=== PATIENT | male | born 1970 | race Caucasian/White ===

== ENCOUNTER → 2019-09-18 13:04 | Outpatient (BNVA) | payer BC, SELFPAY | PROVIDERS: Family Provider Electrodiagnostic Medicine; PCP Family Medicine; Visit Provider Nurse Practitioner | DX: F31.81 Bipolar II disorder (principal) | CPT/HCPCS: 90832; 99213 ==

== ENCOUNTER → 2019-11-29 08:28 | Outpatient (BNVA) | payer BC, SELFPAY | PROVIDERS: Family Provider Electrodiagnostic Medicine; PCP Family Medicine; Visit Provider Nurse Practitioner | DX: F31.81 Bipolar II disorder (principal) | CPT/HCPCS: 99214 ==

== ENCOUNTER → 2019-12-21 07:39 | Outpatient (BNVA) | payer BC, SELFPAY | PROVIDERS: Family Provider Electrodiagnostic Medicine; PCP Family Medicine; Visit Provider Nurse Practitioner | DX: F31.81 Bipolar II disorder (principal); F41.1 Generalized anxiety disorder | CPT/HCPCS: 99214 ==

== ENCOUNTER → 2020-01-08 07:42 | Outpatient (BNVA) | payer BC, SELFPAY | PROVIDERS: Family Provider Electrodiagnostic Medicine; PCP Family Medicine; Visit Provider Nurse Practitioner | DX: F31.81 Bipolar II disorder (principal) | CPT/HCPCS: 99213 ==

== ENCOUNTER → 2020-01-22 07:50 | Outpatient (BNVA) | payer BC, SELFPAY | PROVIDERS: Family Provider Electrodiagnostic Medicine; PCP Family Medicine; Visit Provider Nurse Practitioner | DX: F31.81 Bipolar II disorder (principal) | CPT/HCPCS: 99214 ==

== ENCOUNTER → 2020-03-04 07:43 | Outpatient (BNVA) | payer BC, SELFPAY | PROVIDERS: Family Provider Electrodiagnostic Medicine; PCP Family Medicine; Visit Provider Nurse Practitioner | DX: F31.81 Bipolar II disorder (principal); F41.1 Generalized anxiety disorder; F43.12 Post-traumatic stress disorder, chronic | CPT/HCPCS: 99213 ==

== ENCOUNTER → 2020-06-03 07:35 | Outpatient (BNVA) | payer BC, SELFPAY | PROVIDERS: Family Provider Electrodiagnostic Medicine; PCP Family Medicine; Visit Provider Nurse Practitioner | DX: F31.81 Bipolar II disorder (principal) | CPT/HCPCS: 99214 ==

== ENCOUNTER → 2020-07-04 08:28 | Outpatient (BNVA) | payer OTHER, SELFPAY | PROVIDERS: Family Provider Electrodiagnostic Medicine; PCP Family Medicine; Visit Provider Nurse Practitioner | DX: F31.81 Bipolar II disorder (principal) | CPT/HCPCS: 99213 ==

== ENCOUNTER → 2020-07-25 08:01 | Outpatient (BNVA) | payer OTHER, SELFPAY | PROVIDERS: Family Provider Electrodiagnostic Medicine; PCP Family Medicine; Visit Provider Nurse Practitioner | DX: F31.81 Bipolar II disorder (principal) | CPT/HCPCS: 99214 ==

== ENCOUNTER → 2020-08-22 09:07 | Outpatient (BNVA) | payer OTHER, SELFPAY | PROVIDERS: Family Provider Electrodiagnostic Medicine; PCP Family Medicine; Visit Provider Nurse Practitioner | DX: F31.81 Bipolar II disorder (principal) | CPT/HCPCS: 99213 ==

== ENCOUNTER → 2020-09-24 07:44 | Outpatient (BNVA) | payer OTHER, SELFPAY | PROVIDERS: Family Provider Electrodiagnostic Medicine; PCP Family Medicine; Visit Provider Nurse Practitioner | DX: F31.81 Bipolar II disorder (principal) | CPT/HCPCS: 99214 ==

== ENCOUNTER → 2020-10-30 08:14 | Outpatient (BNVA) | payer OTHER, SELFPAY | PROVIDERS: Family Provider Electrodiagnostic Medicine; PCP Family Medicine; Visit Provider Nurse Practitioner | DX: F31.81 Bipolar II disorder (principal) | CPT/HCPCS: 99214 ==

== ENCOUNTER → 2020-11-27 07:57 | Outpatient (BNVA) | payer OTHER, SELFPAY | PROVIDERS: Family Provider Electrodiagnostic Medicine; PCP Family Medicine; Visit Provider Nurse Practitioner | DX: F31.81 Bipolar II disorder (principal) | CPT/HCPCS: 99214 ==

== ENCOUNTER → 2020-12-02 09:26 | Outpatient (BNVA) | payer OTHER, SELFPAY | PROVIDERS: Family Provider Electrodiagnostic Medicine; PCP Family Medicine; Visit Provider Nurse Practitioner | DX: F31.81 Bipolar II disorder (principal) | CPT/HCPCS: 99214 ==

== ENCOUNTER → 2020-12-19 08:28 | Outpatient (BNVA) | payer OTHER, SELFPAY | PROVIDERS: Family Provider Electrodiagnostic Medicine; PCP Family Medicine; Visit Provider Nurse Practitioner | DX: F31.81 Bipolar II disorder (principal) | CPT/HCPCS: 99214 ==

== ENCOUNTER → 2021-01-15 07:58 | Outpatient (BNVA) | payer OTHER, SELFPAY | PROVIDERS: Family Provider Electrodiagnostic Medicine; PCP Family Medicine; Visit Provider Nurse Practitioner | DX: F31.81 Bipolar II disorder (principal) | CPT/HCPCS: 99214 ==